=== PATIENT | female | born 1980 | race Caucasian/White ===

== ENCOUNTER 2016-09-11 05:32 | Inpatient (IN) | payer BC ==
[~2016-09-11] VITALS: Ht 170.2 cm; Wt 83.9 kg
[2016-09-11 05:40] VITALS: BP_SYST 164
[2016-09-11] MEDS ORDERED: ONDANSETRON HCL 4 MG/2 ML VIAL ONE ×2 (06:13→07:33)
[2016-09-11] MEDS ORDERED: NACL 0.9% 1,000 ML IV ONE ×2 (06:15→10:15)
[2016-09-11] MEDS ORDERED: MORPHINE 4 MG/ML INJ. SYRINGE IVP ONE ×2 (06:15→08:15)
[2016-09-11] MEDS ORDERED: ONDANSETRON HCL 4 MG/2 ML VIAL IVP ONE ×2 (06:15→07:30)
[2016-09-11] MEDS ORDERED: PIPERACILLIN/TAZO 3.38 GM in NS 50 ML IV ONE (06:15)
[2016-09-11] MEDS ORDERED: DIPHENHYDRAMINE INJ 50 MG/ML VIAL IVP ONE (06:15)
[2016-09-11] MEDS ORDERED: PIPERACILLIN/TAZOBACTAM 3.375 GM/VIAL (ZOSYN) IV ONE (06:29)
[2016-09-11] MEDS ORDERED: LORazepam 2 MG/ML VIAL (FOR ER USE) IVP ONE ×2 (07:15→09:45)
[2016-09-11] MEDS ORDERED: ONDANSETRON HCL 4 MG/5 ML UDC PO ONE (07:15)
[2016-09-11] MEDS ORDERED: LIDOCAINE 1% 10 MG/ML, 20 ML MDV INJ ONE (07:45)
[2016-09-11] MEDS ORDERED: LIDOCAINE 1%, 20 ML MDV 20 ML ONE (07:53)
[2016-09-11] MEDS ORDERED: MORPHINE 4 MG/ML INJ. SYRINGE ONE (08:08)
[2016-09-11 08:17] LABS: HEMATOCRIT 40.7 % (36-48); HEMOGLOBIN 13.7 g/dL (12.0-16.0); MEAN CORPUSCULAR HEMOGLOBIN 28 pg (27-31); MEAN CORPUSCULAR HGB CONC 34 % (32-36); MEAN CORPUSCULAR VOLUME 84 fL (79.0-98.0); PLATELET COUNT (AUTO) 417 K/uL (130-430); RED BLOOD CELL COUNT(AUTO) 4.84 MIL/uL (4.2-6.2); WHITE BLOOD COUNT (AUTO) 28.8 K/uL (4.8-10.8)
[2016-09-11 08:21] LABS: ANION GAP 17 (5-15); CALCIUM 9.4 mg/dL (8.4-11.0); CHLORIDE 101 mmol/L (98-107); CREATININE 0.94 mg/dL (0.55-1.30); GLUCOSE 143 mg/dL (70-99); POTASSIUM 3.3 mmol/L (3.5-5.1); SODIUM SERUM 137 mmol/L (136-145); UREA NITROGEN, BLOOD 12 mg/dL (8-21)
[2016-09-11 08:22] LABS: GFR AFRICAN AMERICAN 86 mL/min (>90); INR 1.1 (0.8-1.2); PROTHROMBIN TIME 12.3 SECS (9.5-12.5)
[2016-09-11] MEDS ORDERED: PROMETHAZINE HCL 25 MG/ML AMP IVP ONE (08:30)
[2016-09-11 08:32] LABS: ALANINE AMINOTRANSFERASE 26 U/L (12-78); ALBUMIN 3.8 g/dL (3.4-4.8); ASPARTATE AMINOTRANSFERASE 39 U/L (10-37); HCG,QUANTITATIVE 0 mIU/ML (0-6); LIPASE 219 U/L (73-393); TOTAL BILIRUBIN 0.4 mg/dL (0.0-1.0); TOTAL PROTEIN, SERUM 7.9 g/dL (6.4-8.3)
[2016-09-11 08:35] LABS: ALCOHOL, BLOOD < 3 mg/dL (<10)
[2016-09-11 08:37] LABS: BAND % (MANUAL) 5 % (0-6); BASOPHILS % (MANUAL) 0 % (0-2); EOSINOPHILS % (MANUAL) 0 % (0-7); LYMPHOCYTES % (MANUAL) 7 % (20-46); MONOCYTES % (MANUAL) 3 % (0-11)
[2016-09-11 08:45] LABS: BILIRUBIN,URINE NEGATIVE (NEGATIVE); CLARITY/URINE CLEAR (CLEAR); COLOR,URINE YELLOW (YELLOW); GLUCOSE,URINE NEGATIVE (NEGATIVE); KETONES,URINE 3+ (NEGATIVE); LEUKOCYTE ESTERASE ,URINE 3+ (NEGATIVE); NITRITE, URINE NEGATIVE (NEGATIVE); PH,URINE 8.5 (5.0-8.0); PROTEIN URINE 2+ (NEGATIVE); UROBILINOGEN,URINE 0.2 (0.2-1.0)
[2016-09-11 08:50] LABS: BLOOD, URINE TRACE (NEGATIVE)
[2016-09-11 09:07] LABS: BACTERIA,URINE MANY /HPF (None Seen); MUCUS,URINE None Seen /LPF (None Seen)
[2016-09-11 09:11] LABS: BARBITURATE, URINE NEGATIVE (NEG <=200); BENZODIAZEPINE, URINE NEGATIVE (NEG <=150); CANNABINOID, URINE NEGATIVE (NEG <=50); COCAINE, URINE NEGATIVE (NEG <=150); METHAMPHETAMINES SCREEN,URINE NEGATIVE (NEG <=500); OPIATE, URINE POSITIVE (NEG <=100); PHENCYCLIDINE SCREEN,URINE NEGATIVE (NEG <=25); URINE AMPHETAMINE NEGATIVE (NEG <=500); URINE METHADONE NEGATIVE (NEG <=200)
[2016-09-11 09:12] LABS: UR TRICYCLIC ANTIDEPRESSANTS POSITIVE (NEG <=300); URINE OXYCODONE SCREEN NEGATIVE (NEG <=100); URINE PROPOXYPHENE SCREEN NEGATIVE (NEG <=300)
[2016-09-11] MEDS ORDERED: cefTRIAXone 1 GM IVPB PREMIX 50 ML IV ONE (10:15)
[2016-09-11] MEDS ORDERED: NACL 0.9% 1,000 ML IV SCH (10:15)
[2016-09-11] MEDS ORDERED: KLO1 PO (10:35)
[2016-09-11] MEDS ORDERED: OMEP40CA33 PO (10:35)
[2016-09-11] MEDS ORDERED: MILN100T PO (10:35)
[2016-09-11] MEDS ORDERED: NORT75CA PO (10:35)
[2016-09-11] MEDS ORDERED: HYDR-2489 PO (10:35)
[2016-09-11] MEDS ORDERED: L-NO1TBD16 PO (10:35)
[2016-09-11] MEDS ORDERED: LAMO100T31 PO (10:35)
[2016-09-11] MEDS ORDERED: ONDA8TAB60 PO (10:35)
[2016-09-11] MEDS ORDERED: b12 shot (10:35)
[2016-09-11] MEDS ORDERED: PNV#1CAP15 PO (10:35)
[2016-09-11] MEDS ORDERED: MELO15TA13 PO (10:35)
[2016-09-11] MEDS ORDERED: ARMO200T PO (10:35)
[2016-09-11] MEDS ORDERED: LAMO50TA2 PO (10:35)
[2016-09-11] MEDS ORDERED: PROC25SU30 RC (10:35)
[2016-09-11] MEDS ORDERED: SUMA100T PO (10:35)
[2016-09-11] MEDS ORDERED: LAMO50TA PO (10:35)
[2016-09-11] MEDS ORDERED: ERGO500043 PO (10:35)
[2016-09-11] MEDS ORDERED: HYDR50CA PO (10:35)
[2016-09-11] MEDS ORDERED: ACETAMINOPHEN 325 MG TABLET PO PRN (10:45)
[2016-09-11] MEDS ORDERED: LORazepam 2 MG/ML VIAL IVP PRN (10:45)
[2016-09-11] MEDS ORDERED: MAGNESIUM SULFATE 50 ML IV PRN (10:45)
[2016-09-11] MEDS ORDERED: POTASSIUM CHLORIDE 10 MEQ TAB.PRT.SR PO PRN (10:45)
[2016-09-11] MEDS ORDERED: ZOLPIDEM TARTRATE 5 MG TABLET PO PRN (10:45)
[2016-09-11] MEDS ORDERED: ONDANSETRON HCL 4 MG/2 ML VIAL IM PRN (10:45)
[2016-09-11] MEDS ORDERED: MORPHINE 2 MG/ML INJ. SYRINGE IVP PRN ×2 (10:45→11:45)
[2016-09-11] MEDS ORDERED: DOCUSATE SODIUM 100 MG CAPSULE PO PRN (10:45)
[2016-09-11] MEDS: cefTRIAXone 1 GM in D5W 50 ML IV SCH (10:45)
[2016-09-11] MEDS ORDERED: METOCLOPRAMIDE HCL 10 MG/2 ML VIAL IVP ONE (11:00)
[2016-09-11 11:28] VITALS: BP_SYST 175
[2016-09-11] MEDS: ONDANSETRON HCL 4 MG/2 ML VIAL IVP PRN ×2 (11:44→18:02)
[2016-09-11] MEDS ORDERED: POTASSIUM CHLORIDE 40 MEQ, LIDOCAINE JECT 2% PF 100 MG 50 MG in NS 250 ML IV ONE (11:45)
[2016-09-11] MEDS: METOCLOPRAMIDE HCL 10 MG/2 ML VIAL IVP SCH ×2 (14:36→22:56)
[2016-09-11] MEDS: HYDROmorphone 2 MG/ML VIAL IVP PRN ×3 (14:37→23:03)
[2016-09-11 15:56] VITALS: BP_SYST 170
[2016-09-11 17:49] LABS: BASOPHILS # (AUTO) 0.1 K/uL (0.0-0.2); BASOPHILS % (AUTO) 0.7 % (0.0-2.0); HEMATOCRIT 38.2 % (36-48); HEMOGLOBIN 12.3 g/dL (12.0-16.0); LYMPHOCYTES # (AUTO) 1.1 K/uL (1.0-5.5); LYMPHOCYTES % (AUTO) 6.9 % (20.5-51.5); MEAN CORPUSCULAR HEMOGLOBIN 27 pg (27-31); MEAN CORPUSCULAR HGB CONC 32 % (32-36); MEAN CORPUSCULAR VOLUME 85 fL (79.0-98.0); MONOCYTES # (AUTO) 0.4 K/uL (0.0-1.0); MONOCYTES % (AUTO) 2.5 % (1.7-9.3); NEUTROPHILS % (AUTO) 89.9 % (40.0-70.0); PLATELET COUNT (AUTO) 397 K/uL (130-430); RED BLOOD CELL COUNT(AUTO) 4.48 MIL/uL (4.2-6.2); RED CELL DISTRIBUTION WIDTH 15.6 % (9.0-15.0); WHITE BLOOD COUNT (AUTO) 15.6 K/uL (4.8-10.8)
[2016-09-11] MEDS: D5NS 1,000 ML IV SCH (18:02)
[2016-09-11] MEDS: PANTOPRAZOLE SODIUM 40 MG/VIAL (PROTONIX) IVP SCH (19:56)
[2016-09-11 20:00] VITALS: BP_SYST 149
[2016-09-12 00:09] VITALS: BP_SYST 149
[2016-09-12] MEDS: HYDROmorphone 2 MG/ML VIAL IVP PRN ×5 (03:41→20:49)
[2016-09-12] MEDS: D5NS 1,000 ML IV SCH ×3 (03:42→22:37)
[2016-09-12 04:10] VITALS: BP_SYST 156
[2016-09-12] MEDS: METOCLOPRAMIDE HCL 10 MG/2 ML VIAL IVP SCH ×3 (06:40→22:37)
[2016-09-12 07:23] LABS: CALCIUM 8.1 mg/dL (8.4-11.0); CREATININE 0.75 mg/dL (0.55-1.30); POTASSIUM 3.5 mmol/L (3.5-5.1)
[2016-09-12 07:43] LABS: BASOPHILS % (AUTO) 0.2 % (0.0-2.0); EOSINOPHILS % (AUTO) 0.3 % (0.0-4.0); HEMOGLOBIN 11.2 g/dL (12.0-16.0); LYMPHOCYTES # (AUTO) 2.5 K/uL (1.0-5.5); MEAN CORPUSCULAR HEMOGLOBIN 28 pg (27-31); MEAN CORPUSCULAR HGB CONC 33 % (32-36); MEAN CORPUSCULAR VOLUME 85 fL (79.0-98.0); MONOCYTES % (AUTO) 8.3 % (1.7-9.3); NEUTROPHILS # (AUTO) 8.3 K/uL (1.8-7.7); NEUTROPHILS % (AUTO) 70.2 % (40.0-70.0); PLATELET COUNT (AUTO) 356 K/uL (130-430); RED BLOOD CELL COUNT(AUTO) 4.01 MIL/uL (4.2-6.2); RED CELL DISTRIBUTION WIDTH 15.6 % (9.0-15.0)
[2016-09-12 07:47] LABS: WHITE BLOOD COUNT (AUTO) 11.8 K/uL (4.8-10.8)
[2016-09-12] MEDS: PANTOPRAZOLE SODIUM 40 MG/VIAL (PROTONIX) IVP SCH ×2 (07:58→20:48)
[2016-09-12 08:00] VITALS: BP_SYST 139
[2016-09-12] MEDS: cefTRIAXone 1 GM in D5W 50 ML IV SCH (10:05)
[2016-09-12 12:07] VITALS: BP_SYST 154
[2016-09-12 16:45] VITALS: BP_SYST 148
[2016-09-12 20:00] VITALS: BP_SYST 150
[2016-09-13] VITALS: BP_SYST 141
[2016-09-13] MEDS: HYDROmorphone 2 MG/ML VIAL IVP PRN ×3 (00:52→08:53)
[2016-09-13 04:00] VITALS: BP_SYST 131
[2016-09-13] MEDS: METOCLOPRAMIDE HCL 10 MG/2 ML VIAL IVP SCH (06:04)
[2016-09-13 08:00] VITALS: BP_SYST 147
[2016-09-13 08:06] LABS: BASOPHILS % (AUTO) 0.5 % (0.0-2.0); EOSINOPHILS # (AUTO) 0.2 K/uL (0.0-0.4); EOSINOPHILS % (AUTO) 1.9 % (0.0-4.0); HEMATOCRIT 35.5 % (36-48); HEMOGLOBIN 11.8 g/dL (12.0-16.0); LYMPHOCYTES # (AUTO) 2.6 K/uL (1.0-5.5); LYMPHOCYTES % (AUTO) 31.9 % (20.5-51.5); MEAN CORPUSCULAR HEMOGLOBIN 28 pg (27-31); MEAN CORPUSCULAR HGB CONC 33 % (32-36); MEAN CORPUSCULAR VOLUME 85 fL (79.0-98.0); MONOCYTES # (AUTO) 0.6 K/uL (0.0-1.0); MONOCYTES % (AUTO) 8.1 % (1.7-9.3); NEUTROPHILS # (AUTO) 4.6 K/uL (1.8-7.7); NEUTROPHILS % (AUTO) 57.6 % (40.0-70.0); PLATELET COUNT (AUTO) 359 K/uL (130-430); RED BLOOD CELL COUNT(AUTO) 4.19 MIL/uL (4.2-6.2); RED CELL DISTRIBUTION WIDTH 15.3 % (9.0-15.0)
[2016-09-13 08:20] LABS: CREATININE 0.71 mg/dL (0.55-1.30); POTASSIUM 3.2 mmol/L (3.5-5.1)
[2016-09-13] MEDS: PANTOPRAZOLE SODIUM 40 MG/VIAL (PROTONIX) IVP SCH (08:52)
[2016-09-13] MEDS: D5NS 1,000 ML IV SCH (08:53)
[2016-09-13] MEDS ORDERED: CIPR-211 PO (08:57)
[2016-09-13 10:28] VITALS: BP_SYST 139
[2016-09-13] MEDS ORDERED: ONDA4TAB5 PO (10:39)
== END 2016-09-13 11:25 | disposition home or self-care (01) | DRG 872 ==
LOC: SED 05:32 → SMU 10:02
PROVIDERS: ADMIT General Practice; ATTEND General Practice
DX: A41.9 Sepsis, unspecified organism (principal); N39.0 Urinary tract infection, site not specified; G43.909 Migraine, unspecified, not intractable, without status migrainosus; M79.7 Fibromyalgia; M06.9 Rheumatoid arthritis, unspecified; F17.200 Nicotine dependence, unspecified, uncomplicated; K52.9 Noninfective gastroenteritis and colitis, unspecified; E87.6 Hypokalemia; I10 Essential (primary) hypertension; G40.909 Epilepsy, unspecified, not intractable, without status epilepticus; G89.4 Chronic pain syndrome; Z91.013 Allergy to seafood; Z90.49 Acquired absence of other specified parts of digestive tract; Z87.11 Personal history of peptic ulcer disease
CPT/HCPCS: 36415; 71010; 80048; 80053; 80307; 81000-TC; 83605; 83690-TC; 83735-TC; 84702-TC; 85007; 85025; 85027; 85610-TC; 87040-TC; 87086; 93005; 93971; 96365; 96375; 96376; 99285; C9113; G0482; J0696; J1170; J1200; J2001; J2060; J2270; J2405; J2543; J2550; J2765; J3480; J7030; J7042; J7050; J7060

== ENCOUNTER 2017-08-11 17:32 | Emergency (ER) | payer BC ==
[~2017-08-11] VITALS: Ht 170.2 cm; Wt 73.5 kg
[~2017-08-11 17:32] MED LIST: ARMO200T PO; CIPR-211 PO; ERGO500043 PO; HYDR-2489 PO; HYDR50CA PO; KLO1 PO; L-NO1TBD16 PO; LAMO100T31 PO; LAMO50TA PO; MILN100T PO; NORT75CA PO; OMEP40CA33 PO; ONDA4TAB5 PO; ONDA8TAB60 PO; PNV#1CAP15 PO; PROC25SU30 RC; SUMA100T PO; b12 shot
[2017-08-11 17:58] VITALS: BP_SYST 140
[2017-08-11] MEDS ORDERED: ACETAMINOPHEN/CODEINE 300 MG-30 MG TABLET PO ONE (18:45)
[2017-08-11 19:56] VITALS: BP_SYST 136
== END 2017-08-11 19:56 | disposition home or self-care (01) ==
LOC: SED 17:32
DX: S92.122A Displaced fracture of body of left talus, initial encounter for closed fracture (principal); R03.0 Elevated blood-pressure reading, without diagnosis of hypertension; M79.7 Fibromyalgia; Z91.013 Allergy to seafood; Z79.899 Other long term (current) drug therapy; Z90.49 Acquired absence of other specified parts of digestive tract; Z90.89 Acquired absence of other organs; W10.9XXA Fall (on) (from) unspecified stairs and steps, initial encounter; Y93.89 Activity, other specified; Y92.009 Unspecified place in unspecified non-institutional (private) residence as the place of occurrence of the external cause; Y99.8 Other external cause status
CPT/HCPCS: 81025; 99284

== ENCOUNTER 2017-09-13 10:43 | Emergency (ER) | payer BC ==
[~2017-09-13] VITALS: Ht 170.2 cm; Wt 72.6 kg
[~2017-09-13 10:43] MED LIST changes: +ERGO500020 PO; -ERGO500043 PO
[2017-09-13 10:46] VITALS: BP_SYST 151
[2017-09-13] MEDS ORDERED: NACL 0.9% 1,000 ML IV ONE (10:53)
--- NOTE | 2017-09-13 11:00 | NUR ---
Pt ambulated to bed 6
--- NOTE | 2017-09-13 11:05 | NUR ---
Pt presents to ER c/o palpitations, anxiety, insomnia x 3 days, migraine 9/10 on pain scale (which she states is chronic issue). Pt denies chest pain or sob. Pt in no acute respiratory distress, speaking full sentences, AOX4, crying because she states she is "frustrated about feeling this way" in regards to anxiousness and inability to sleep. Souravace at bedside.
[2017-09-13] MEDS ORDERED: LORazepam 2 MG/ML VIAL (FOR ER USE) IVP ONE ×2 (11:15→12:45)
--- NOTE | 2017-09-13 11:15 | NUR ---
ER at bedside examining patient.
[2017-09-13 11:24] LABS: BILIRUBIN,URINE NEGATIVE (NEGATIVE); BLOOD, URINE NEGATIVE (NEGATIVE); CLARITY/URINE CLEAR (CLEAR); COLOR,URINE YELLOW (YELLOW); GLUCOSE,URINE NEGATIVE (NEGATIVE); KETONES,URINE NEGATIVE (NEGATIVE); LEUKOCYTE ESTERASE ,URINE 3+ (NEGATIVE); NITRITE, URINE NEGATIVE (NEGATIVE); PROTEIN URINE TRACE (NEGATIVE); UROBILINOGEN,URINE 0.2 (0.2-1.0)
--- NOTE | 2017-09-13 11:25 | NUR ---
# 22 gauge angiocath placed to LAC. Use of asceptic technique. Opsite placed over site. Blood return noted. Blood for lab drawn from site. Flushed with 10 cc of normal saline. No evidence of infiltration noted. Patient tolerated well.
[2017-09-13 11:37] LABS: BACTERIA,URINE MODERATE /HPF (None Seen); RBC,URINE 0-3 /HPF (0-3); WBC,URINE 20-50 /HPF (0-3)
[2017-09-13 11:38] LABS: MUCUS,URINE 1+ /LPF (None Seen)
[2017-09-13 11:38] LABS: BASOPHILS # (AUTO) 0.1 K/uL (0.0-0.2); BASOPHILS % (AUTO) 0.8 % (0.0-2.0); EOSINOPHILS # (AUTO) 0.1 K/uL (0.0-0.4); EOSINOPHILS % (AUTO) 0.6 % (0.0-4.0); HEMATOCRIT 42.9 % (36-48); HEMOGLOBIN 14.2 g/dL (12.0-16.0); LYMPHOCYTES # (AUTO) 3.3 K/uL (1.0-5.5); LYMPHOCYTES % (AUTO) 33.3 % (20.5-51.5); MEAN CORPUSCULAR HEMOGLOBIN 27 pg (27-31); MEAN CORPUSCULAR HGB CONC 33 % (32-36); MEAN CORPUSCULAR VOLUME 83 fL (79.0-98.0); MONOCYTES # (AUTO) 0.6 K/uL (0.0-1.0); MONOCYTES % (AUTO) 5.8 % (1.7-9.3); NEUTROPHILS # (AUTO) 5.9 K/uL (1.8-7.7); NEUTROPHILS % (AUTO) 59.5 % (40.0-70.0); PLATELET COUNT (AUTO) 454 K/uL (130-430); RED BLOOD CELL COUNT(AUTO) 5.17 MIL/uL (4.2-6.2); RED CELL DISTRIBUTION WIDTH 18.3 % (9.0-15.0)
[2017-09-13 11:43] LABS: CALCIUM 9.6 mg/dL (8.4-11.0); CREATININE 1.03 mg/dL (0.55-1.30)
[2017-09-13 11:46] LABS: PROTHROMBIN TIME 10.2 SECS (9.5-12.5)
[2017-09-13 11:51] LABS: ALBUMIN 4.4 g/dL (3.4-4.8); TOTAL BILIRUBIN 0.3 mg/dL (0.0-1.0)
[2017-09-13 13:20] VITALS: BP_SYST 142
--- NOTE | 2017-09-13 13:40 | NUR ---
Patient given written and verbal discharge instructions and verbalizes understanding. ER MD discussed with patient the results and treatment provided. Patient in stable condition. ID arm band removed. IV catheter removed intact and dressing applied, no active bleeding. Rx of Ativan, Pyridium and Keflex given. Patient educated on pain management and to follow up with PMD. Pain Scale 0/10. Opportunity for questions provided and answered. Medication side effect fact sheet provided.
== END 2017-09-13 13:40 | disposition home or self-care (01) ==
LOC: SED 10:43
DX: F41.9 Anxiety disorder, unspecified (principal); N39.0 Urinary tract infection, site not specified; M79.7 Fibromyalgia; R03.0 Elevated blood-pressure reading, without diagnosis of hypertension; Z90.89 Acquired absence of other organs; Z91.013 Allergy to seafood; Z79.899 Other long term (current) drug therapy
CPT/HCPCS: 36415; 71045; 80053; 81000; 82550; 83690; 84484; 85025; 85610; 85730; 87086; 93005; 96361; 96374; 96376; 99285; J2060; J7030; 99283